=== PATIENT | female | born 1940 | race Caucasian/White ===

== ENCOUNTER 2018-09-17 21:48 | Inpatient (IN) | payer MEDICARE, BC ==
[~2018-09-17] VITALS: Ht 165.1 cm; Wt 85.8 kg
[2018-09-17] MEDS ORDERED: ALBUTEROL/IPRATROPIUM 2.5MG/0.5MG, 3 ML ONE (22:52)
--- NOTE | 2018-09-17 22:59 | NUR ---
PT WITH IV PLACED RESP TX AT BEDSIDE AND BLOOD TO LAB. PT AWAITING CTA.
[2018-09-17] MEDS ORDERED: ALBUTEROL/IPRATROPIUM 2.5MG/0.5MG, 3 ML NPPB ONE (23:00)
[2018-09-17 23:02] LABS: BASOPHILS # (AUTO) 0.05 x10^3/uL (0-0.1); BASOPHILS % (AUTO) 0 % (0-1); EOSINOPHILS # (AUTO) 0.04 x10^3/uL (0-0.4); EOSINOPHILS % (AUTO) 0 % (1-7); LYMPHOCYTES # (AUTO) 1.03 x10^3/uL (1-3.4); LYMPHOCYTES % (AUTO) 8 % (22-44); MD NO; MEAN CORPUSCULAR HEMOGLOBIN 28.7 pg (27.0-34.8); MEAN CORPUSCULAR HGB CONC 32.1 g/dL (32.4-35.8); MEAN CORPUSCULAR VOLUME 89.4 fL (80-100); MEAN PLATELET VOLUME 9.1 fL (7.4-10.4); MONOCYTES # (AUTO) 1.12 x10^3/uL (0.2-0.8); MONOCYTES % (AUTO) 9 % (2-9); NEUTROPHILS # (AUTO) 10.25 x10^3/uL (1.8-6.8); NEUTROPHILS % (AUTO) 82 % (42-75); PLATELET COUNT 229 x10^3/uL (130-400); RED BLOOD COUNT 4.64 x10^6/uL (3.82-5.3); RED CELL DISTRIBUTION WIDTH 14.9 % (9.6-15.2)
[2018-09-17 23:14] LABS: ALANINE AMINOTRANSFERASE 22 U/L (12-78); ALBUMIN 3.3 g/dL (3.4-5.0); ANION GAP 6 mmol/L (5-15); CALCIUM 8.5 mg/dL (8.5-10.1); CHLORIDE 102 mmol/L (98-107); CREATININE 1.32 mg/dL (0.55-1.02)
[2018-09-17 23:16] LABS: ALKALINE PHOSPHATASE 129 U/L (45-117); BILIRUBIN,TOTAL 0.4 mg/dL (0.2-1.0); TOTAL PROTEIN 7.5 g/dL (6.4-8.2)
[2018-09-17 23:21] LABS: TROPONIN I 0.292 ng/mL (0.000-0.045)
[2018-09-17] MEDS ORDERED: ASPIRIN 81 MG TABLET CHEW PO ONE (23:30)
[2018-09-17] MEDS ORDERED: ALBU18HF INH (23:35)
[2018-09-17] MEDS ORDERED: ELIQUIS PO (23:35)
[2018-09-17] MEDS ORDERED: FOLIC ACID PO (23:35)
[2018-09-17] MEDS ORDERED: FLUT1AER INH (23:35)
[2018-09-17] MEDS ORDERED: PHENOBARBITAL PO (23:35)
--- NOTE | 2018-09-17 23:36 | NUR ---
CT AWARE PT IS READY FOR HER CTA. REPEAT EKG DONE. PT C/O SLIGHT BURNING C/P AT THIS TIME. PT HR REMAINS 126, ST. ERP AWARE. FAMILY AT BEDSIDE. PT HAS IV. CALL LIGHT WITHIN REACH.
[2018-09-17] MEDS ORDERED: ASPIRIN 81 MG TABLET CHEW ONE (23:40)
--- NOTE | 2018-09-17 23:41 | NUR ---
PT TO CTA
[2018-09-17] MEDS ORDERED: OMNIPAQUE 350 MG/ML, 100ML BOTTLE ONE (23:53)
--- NOTE | 2018-09-18 00:08 | NUR ---
PT MEDICATED WITH ORDERED ASA. AWAITING CTA RESULTS. FAMILY REMAINS AT BEDSIDE.
--- NOTE | 2018-09-18 00:35 | NUR ---
PT RESTING CALMLY IN BED. NO STATED NEEDS AT THIS TIME. PT FAMILY AT BEDSIDE.
--- NOTE | 2018-09-18 00:41 | NUR ---
CTA STILL NOT RESULTED. CT CALLED, TECH STATED THEY WILL LOOK INTO IT. ERP AWARE.
--- NOTE | 2018-09-18 00:46 | NUR ---
PT RESTING IN BED, NO COMPLAINTS AT THIS TIME, FAMILY AT BEDSIDE, VSS
[2018-09-18] MEDS ORDERED: ONDANSETRON 2MG/ML, 2ML IVPush PRN (01:00)
--- NOTE | 2018-09-18 01:12 | NUR ---
REPORT CALLED TO FLOOR
--- NOTE | 2018-09-18 01:23 | NUR ---
report to Jennifer higgins. Report has been called, pt ready to be transported upstairs however admitting hospitalist is at bedside at this time.
[2018-09-18] MEDS: SODIUM CHLORIDE 0.9% 1,000 ML IV SCH ×3 (01:32→20:23)
[2018-09-18] MEDS ORDERED: NITROGLYCERIN 0.4 MG BOTTLE (25 TABS) SL PRN (02:00)
[2018-09-18] MEDS ORDERED: ONDANSETRON 2MG/ML, 2ML IVPB PRN (02:00)
[2018-09-18] MEDS ORDERED: ALBUTEROL/IPRATROPIUM 2.5MG/0.5MG, 3 ML NPPB PRN (02:00)
[2018-09-18] MEDS ORDERED: SENNA/DOCUSATE TABLET PO PRN (02:00)
[2018-09-18] MEDS ORDERED: PHARMACY MAY ADJ FOR RENAL FX MC PRN (02:00)
[2018-09-18] MEDS ORDERED: morphine SULFATE 10 MG/ML, 1ML IVPush PRN (02:00)
[2018-09-18] MEDS ORDERED: ACETAMINOPHEN 325 MG TABLET PO PRN (02:00)
[2018-09-18] MEDS ORDERED: NITROGLYCERIN 0.4 MG/SPRAY SL PRN (02:00)
[2018-09-18] MEDS ORDERED: morphine SULFATE 10 MG/ML, 1ML IV PRN (02:00)
[2018-09-18] MEDS ORDERED: LIDODERM 5% PATCH TD PRN (02:00)
[2018-09-18] MEDS: AZITHROMYCIN 500 MG in SODIUM CHLORIDE 0.9% 250 ML IV SCH (02:30)
[2018-09-18] MEDS: methylPREDNISolone SOD SUCC 40 MG/ML IV SCH ×3 (02:30→17:47)
[2018-09-18 02:36] LABS: CHOLESTEROL, TOTAL 175 mg/dL (140-239); TRIGLYCERIDES 64 mg/dL (50-200); VLDL CHOLESTEROL 13 mg/dL (0-25)
[2018-09-18 02:39] LABS: CHOL/HDL RATIO 2.3; HDL CHOL % 44 % (28-40); HDL CHOLESTEROL (DIRECT) 77 mg/dL (40-60); LDL CHOLESTEROL,CALCULATED 85 mg/dL (54-169); LDL/HDL RATIO 1.1 (0.5-3.0); TROPONIN I 0.291 ng/mL (0.000-0.045)
[2018-09-18] MEDS: ALBUTEROL/IPRATROPIUM 2.5MG/0.5MG, 3 ML NPPB SCH ×3 (02:59→20:26)
[2018-09-18 03:03] VITALS: BP 133/80
[2018-09-18] MEDS: CEFTRIAXONE PMX 1GM/50ML 50 ML IV SCH (03:28)
[2018-09-18] MEDS: BUDESONIDE 0.5 MG/2 ML INHA NPPB SCH ×2 (07:17→20:26)
[2018-09-18 07:42] LABS: TROPONIN I 0.174 ng/mL (0.000-0.045)
[2018-09-18] MEDS ORDERED: FLUTICASONE/VILANTEROL 100-25MCG/INH INH SCH (09:00)
[2018-09-18 09:27] VITALS: BP 125/72
[2018-09-18] MEDS: BENZONATATE 100 MG CAPSULE PO SCH ×3 (10:14→20:18)
[2018-09-18] MEDS: SODIUM CHLORIDE FLUSH 10ML SYR IVF SCH ×2 (10:15→20:17)
[2018-09-18] MEDS ORDERED: FURO40TA6 PO (13:25)
[2018-09-18] MEDS ORDERED: POTA10CA PO (13:25)
[2018-09-18] MEDS ORDERED: SERT50TA28 PO (13:25)
[2018-09-18 15:58] VITALS: BP 131/74
[2018-09-18] MEDS ORDERED: PHENOBARBITAL 30 MG TABLET PO SCH (16:00)
[2018-09-18 19:05] VITALS: BP 151/79
[2018-09-18] MEDS: APIXABAN 5 MG TABLET PO SCH (20:18)
[2018-09-18] MEDS: PHENOBARBITAL 30 MG TABLET PO SCH (20:18)
[2018-09-18] MEDS ORDERED: PHENOBARBITAL PO SCH (21:00)
[2018-09-19 00:55] VITALS: BP 123/69
[2018-09-19] MEDS: methylPREDNISolone SOD SUCC 40 MG/ML IV SCH (01:43)
[2018-09-19] MEDS: AZITHROMYCIN 500 MG in SODIUM CHLORIDE 0.9% 250 ML IV SCH (01:43)
[2018-09-19] MEDS: ALBUTEROL/IPRATROPIUM 2.5MG/0.5MG, 3 ML NPPB SCH ×5 (03:00→18:52)
[2018-09-19] MEDS: CEFTRIAXONE PMX 1GM/50ML 50 ML IV SCH (03:04)
[2018-09-19] MEDS: ASPIRIN 325 MG TABLET EC PO SCH (05:27)
[2018-09-19 06:03] LABS: ALBUMIN 2.8 g/dL (3.4-5.0); ANION GAP 6 mmol/L (5-15); CALCIUM 7.6 mg/dL (8.5-10.1); CHLORIDE 107 mmol/L (98-107)
[2018-09-19 06:05] LABS: BASOPHILS # (AUTO) 0.01 x10^3/uL (0-0.1); BASOPHILS % (AUTO) 0 % (0-1); EOSINOPHILS # (AUTO) 0.07 x10^3/uL (0-0.4); EOSINOPHILS % (AUTO) 1 % (1-7); LYMPHOCYTES % (AUTO) 14 % (22-44); MD NO; MEAN CORPUSCULAR HEMOGLOBIN 28.7 pg (27.0-34.8); MEAN CORPUSCULAR HGB CONC 32.1 g/dL (32.4-35.8); MEAN CORPUSCULAR VOLUME 89.4 fL (80-100); MEAN PLATELET VOLUME 9.4 fL (7.4-10.4); MONOCYTES # (AUTO) 0.26 x10^3/uL (0.2-0.8); MONOCYTES % (AUTO) 4 % (2-9); NEUTROPHILS % (AUTO) 81 % (42-75); PLATELET COUNT 197 x10^3/uL (130-400); RED BLOOD COUNT 4.06 x10^6/uL (3.82-5.3); RED CELL DISTRIBUTION WIDTH 15.3 % (9.6-15.2)
[2018-09-19] MEDS: BUDESONIDE 0.5 MG/2 ML INHA NPPB SCH ×2 (07:38→18:52)
[2018-09-19 07:59] VITALS: BP 126/73
[2018-09-19] MEDS: FOLIC ACID 1 MG TABLET PO SCH (08:25)
[2018-09-19] MEDS: BENZONATATE 100 MG CAPSULE PO SCH ×3 (08:25→21:10)
[2018-09-19] MEDS: APIXABAN 5 MG TABLET PO SCH ×2 (08:25→21:10)
[2018-09-19] MEDS: SODIUM CHLORIDE FLUSH 10ML SYR IVF SCH ×2 (08:25→21:10)
[2018-09-19] MEDS: SERTRALINE 50MG TABLET PO SCH (08:25)
[2018-09-19] MEDS: SODIUM CHLORIDE 0.9% 1,000 ML IV SCH (08:26)
[2018-09-19] MEDS ORDERED: AZITHROMYCIN 500 MG TABLET PO SCH (09:00)
[2018-09-19] MEDS ORDERED: LEVOFLOXACIN 500 MG TABLET PO SCH (11:30)
[2018-09-19] MEDS: CEFDINIR 300 MG CAPSULE PO SCH ×2 (11:54→23:43)
[2018-09-19 13:17] VITALS: BP 149/84
[2018-09-19 20:20] VITALS: BP 153/72
[2018-09-19] MEDS: PHENOBARBITAL 30 MG TABLET PO SCH (21:10)
[2018-09-20 00:59] VITALS: BP 159/76
[2018-09-20] MEDS: ALBUTEROL/IPRATROPIUM 2.5MG/0.5MG, 3 ML NPPB SCH ×4 (02:44→20:56)
[2018-09-20] MEDS: ASPIRIN 325 MG TABLET EC PO SCH (05:49)
[2018-09-20] MEDS ORDERED: FUROSEMIDE 20 MG/2 ML IV ONE (08:00)
[2018-09-20 08:13] VITALS: BP 156/78
[2018-09-20] MEDS ORDERED: IPRA3AMP30 NPPB (08:17)
[2018-09-20] MEDS ORDERED: CEFD300C37 PO (08:17)
[2018-09-20] MEDS ORDERED: PRED20TA PO (08:17)
[2018-09-20] MEDS: BUDESONIDE 0.5 MG/2 ML INHA NPPB SCH ×2 (09:00→20:56)
[2018-09-20] MEDS: SODIUM CHLORIDE FLUSH 10ML SYR IVF SCH ×2 (09:00→20:27)
[2018-09-20] MEDS: APIXABAN 5 MG TABLET PO SCH ×2 (09:10→20:27)
[2018-09-20] MEDS: BENZONATATE 100 MG CAPSULE PO SCH ×3 (09:10→20:26)
[2018-09-20] MEDS: SERTRALINE 50MG TABLET PO SCH (09:10)
[2018-09-20] MEDS: FOLIC ACID 1 MG TABLET PO SCH (09:10)
[2018-09-20] MEDS: CEFDINIR 300 MG CAPSULE PO SCH ×2 (11:21→23:41)
[2018-09-20] MEDS ORDERED: FUROSEMIDE 40 MG TABLET PO PRN (11:30)
[2018-09-20 15:04] VITALS: BP 162/77
[2018-09-20] MEDS: LISINOPRIL 5 MG TABLET PO SCH (18:18)
[2018-09-20 19:09] VITALS: BP 168/76
[2018-09-20] MEDS: PHENOBARBITAL 30 MG TABLET PO SCH (20:27)
[2018-09-21 00:15] VITALS: BP 152/77
[2018-09-21] MEDS: ALBUTEROL/IPRATROPIUM 2.5MG/0.5MG, 3 ML NPPB SCH ×3 (03:00→15:00)
[2018-09-21] MEDS ORDERED: ASPIRIN 81 MG TABLET EC PO SCH (06:00)
[2018-09-21 06:19] LABS: ALBUMIN 2.7 g/dL (3.4-5.0); ANION GAP 7 mmol/L (5-15); CALCIUM 8.1 mg/dL (8.5-10.1); CHLORIDE 105 mmol/L (98-107)
[2018-09-21 06:20] LABS: CREATININE 1.16 mg/dL (0.55-1.02)
[2018-09-21 07:27] VITALS: BP 146/76
[2018-09-21] MEDS: BUDESONIDE 0.5 MG/2 ML INHA NPPB SCH (09:00)
[2018-09-21] MEDS: SERTRALINE 50MG TABLET PO SCH (09:36)
[2018-09-21] MEDS: LISINOPRIL 5 MG TABLET PO SCH (09:36)
[2018-09-21] MEDS: FOLIC ACID 1 MG TABLET PO SCH (09:36)
[2018-09-21] MEDS: BENZONATATE 100 MG CAPSULE PO SCH (09:36)
[2018-09-21] MEDS: APIXABAN 5 MG TABLET PO SCH (09:37)
[2018-09-21] MEDS: SODIUM CHLORIDE FLUSH 10ML SYR IVF SCH (09:38)
[2018-09-21] MEDS ORDERED: LISI5TAB7 PO (11:13)
[2018-09-21] MEDS: ASPIRIN 81 MG TABLET CHEW PO SCH ×2 (11:30→12:45)
[2018-09-21] MEDS ORDERED: FUROSEMIDE 10 MG/ML ORAL SOL PO SCH (12:00)
[2018-09-21] MEDS: CEFDINIR 300 MG CAPSULE PO SCH (12:36)
[2018-09-21] MEDS ORDERED: FUROSEMIDE 40 MG TABLET PO SCH (12:41)
[2018-09-21 14:05] VITALS: BP 150/73
[2018-09-22] MEDS ORDERED: FUROSEMIDE 40 MG TABLET PO SCH (09:00)
== END 2018-09-21 19:00 | disposition home health service (06) | DRG 871 ==
LOC: ED 23:00 → EDIP 09-18 00:46 → 5SO 09-18 01:57 → 4WST 09-18 17:57
PROVIDERS: ADMIT Internal Medicine; ATTEND Internal Medicine
DX: A41.9 Sepsis, unspecified organism (principal); I21.4 Non-ST elevation (NSTEMI) myocardial infarction; J15.6 Pneumonia due to other Gram-negative bacteria; N17.0 Acute kidney failure with tubular necrosis; J96.01 Acute respiratory failure with hypoxia; E43 Unspecified severe protein-calorie malnutrition; J44.1 Chronic obstructive pulmonary disease with (acute) exacerbation; J44.0 Chronic obstructive pulmonary disease with (acute) lower respiratory infection; I50.30 Unspecified diastolic (congestive) heart failure; M06.9 Rheumatoid arthritis, unspecified; G40.909 Epilepsy, unspecified, not intractable, without status epilepticus; Z96.651 Presence of right artificial knee joint; I11.0 Hypertensive heart disease with heart failure; E66.9 Obesity, unspecified; G89.29 Other chronic pain; M54.9 Dorsalgia, unspecified; Z87.891 Personal history of nicotine dependence; Z86.711 Personal history of pulmonary embolism; Z72.89 Other problems related to lifestyle; Z99.81 Dependence on supplemental oxygen; Z86.718 Personal history of other venous thrombosis and embolism; Z79.01 Long term (current) use of anticoagulants; Z80.0 Family history of malignant neoplasm of digestive organs; Z80.8 Family history of malignant neoplasm of other organs or systems; Z82.0 Family history of epilepsy and other diseases of the nervous system; Z88.5 Allergy status to narcotic agent; Z68.31 Body mass index [BMI] 31.0-31.9, adult
CPT/HCPCS: 36415; 71045; 71275; 80048; 80053; 80061; 82040; 83880; 84484; 85025; 87040; 93005; 93306; 94640; 99291; G0378; J0456; J0696; J7620; J7626; Q9967; J1940; J2920; J7030; J7050; J7512